=== PATIENT | female | born 1955 | race Caucasian/White ===

== ENCOUNTER 2017-03-19 15:09 | Inpatient (IN) ==
--- NOTE | 2017-03-18 21:32 | Discharge Summary ---
<Radha Montoya Cora - Last Filed: 03/18/17 21:28> Date of Encounter: 03/18/17 - Discharge Diagnosis (1) Arthritis of left hip Priority: Primary Status: Acute (2) Status post total hip replacement, left Priority: Primary Status: Acute (3) Tobacco use Priority: Secondary Status: Chronic (4) PVD (peripheral vascular disease) Priority: Secondary Status: Chronic - Discharge Medications Home Medications: Aspirin Enteric Coated [Aspirin EC] 325 mg PO DAILY #21 tablet.dr 03/18/17 [Rx] OxyCODONE Immed Rel [Roxicodone 5 MG] 5 mg PO Q6HR PRN #28 tablet 03/18/17 [Rx] Atorvastatin [Lipitor] 40 mg PO HS 03/19/17 [History] Buspirone HCl [Buspar] 15 mg PO DAILY 03/19/17 [History] Meloxicam [Mobic] 15 mg PO DAILY 03/19/17 [History] Sertraline [Zoloft] 50 mg PO DAILY 03/19/17 [History] Allergies/Adverse Reactions: 3 Allergy/AdvReac Type Severity Reaction Status Date / Time Penicillins Allergy Unknown See Verified 03/20/17 02:25 Comments Primary care physician: Higinio Vickers, - Patient Status Disposition: Home Health Service Condition: Good - Discharge Instructions Follow Up With: Higinio Vickers DO [Primary Care Provider] - - Hospital Course Hospital course: Ms. Reyes is a 62 year old female - Time Spent with Patient Total time spent providing and/or coordinating discharge services: <Kelvin Hancock - Last Filed: 03/21/17 07:49> Date of Encounter: 03/21/17 Time of Encounter: 07:49 - Discharge Diagnosis (1) Arthritis of left hip Priority: Primary Status: Chronic (2) Status post total hip replacement, left Priority: Primary Status: Acute (3) Tobacco use Priority: Secondary Status: Chronic (4) PVD (peripheral vascular disease) Priority: Secondary Status: Chronic Primary care physician: Higinio Vickers, - Patient Status Functional capacity at discharge: uses cane/walker Overall status at discharge: patient is progressing back to baseline - Hospital Course Hospital course: Ms. Reyes is a 62 year old female post left total hip replacement The patient had an uneventful postoperative course. They received antibiotics and physical therapy and were discharged in stable condition. There will follow -up in the office in 2 weeks. - Time Spent with Patient Total time spent providing and/or coordinating discharge services:
--- NOTE | 2017-03-18 21:35 | Physician Discharge Referral ---
<Radha Montoya Cora - Last Filed: 03/18/17 21:33> Home Health/Hosp Referral Info Transfer to: Home Health Attending Provider: Provider in Charge Post Discharge: PCP - Diagnosis (1) Arthritis of left hip Priority: Primary Status: Acute (2) Status post total hip replacement, left Priority: Primary Status: Acute (3) Tobacco use Priority: Secondary Status: Chronic (4) PVD (peripheral vascular disease) Priority: Secondary Status: Chronic - Respiratory Orders None Smoking Cessation: Smoking cessation has been advised. For more information, call the [place] Tobacco Quit Line at 8-771-BCME-NOW. - Diet/Nutrition Diet/Nutrition Orders: Regular - Activity Activity Orders: Up ad joselin, Ambulate, Chair, Walker - Services Needed Following services are medically necessary services: Nursing, Home Health Aide, Physical Therapy, Occupational Therapy Home Care Orders: Opsite dressing, leave intact until first post-operative visit. If dressing becomes >50% saturated, contact office, remove dressing and place appropriate dressing in its place. Do not allow for dressing to get wet. Zipline in place, plan to remove at post-operative day #14-16. Total Joint Precautions x 6 weeks Apply cold therapy wrap 3-6x/day for 20 minutes at a time. Encourage ambulation throughout the day Use Incentive spirometer 10x/hour. Elevate affected extremity above heart as tolerated. Brace: Wear hip abduction brace at night x 6 weeks. - Transfer Medications Home Medications: Aspirin Enteric Coated [Aspirin EC] 325 mg PO DAILY #21 tablet. 03/18/17 [Rx] OxyCODONE Immed Rel [Roxicodone 5 MG] 5 mg PO Q6HR PRN #28 tablet 03/18/17 [Rx] Atorvastatin [Lipitor] 40 mg PO HS 03/19/17 [History] Buspirone HCl [Buspar] 15 mg PO DAILY 03/19/17 [History] Meloxicam [Mobic] 15 mg PO DAILY 03/19/17 [History] Sertraline [Zoloft] 50 mg PO DAILY 03/19/17 [History] Allergies/Adverse Reactions: 3 Allergy/AdvReac Type Severity Reaction Status Date / Time Penicillins Allergy Unknown See Verified 03/20/17 02:25 Comments Certification: Further, I certify that my clinical findings support that this patient is homebound (i.e. absences from home require considerable and taxing effort and are for medical reasons or jainism services or infrequently or short duration when for other reasons) because: Homebound Reason: Absences from home are contraindicated except to recieve medical care Attestation: My signature below is to certify that this patient is under my care and that I, or nurse practitioner, or a physician's assistant softball coach working with me, has a face-to -face encounter with this patient. <Kelvin Hancock - Last Filed: 03/21/17 07:48> - Diagnosis (1) Arthritis of left hip Status: Chronic (2) Status post total hip replacement, left Status: Acute (3) Tobacco use Status: Chronic (4) PVD (peripheral vascular disease) Status: Chronic - Respiratory Orders Smoking Cessation: Smoking cessation has been advised. For more information, call the [place] Tobacco Quit Line at 0-697-VCQL-NOW. Certification: Further, I certify that my clinical findings support that this patient is homebound (i.e. absences from home require considerable and taxing effort and are for medical reasons or jainism services or infrequently or short duration when for other reasons) because: Attestation: My signature below is to certify that this patient is under my care and that I, or nurse practitioner, or a physician's assistant softball coach working with me, has a face-to -face encounter with this patient.
--- NOTE | 2017-03-19 15:43 | History & Physical Report ---
Date of Encounter: 03/19/17 Time of Encounter: 15:42 24 Hour HP Update - Instructions Instructions: If the History and Physical is less than 30 days old and was completed prior to A.M. admission and or procedure and has NOT been updated on calendar day of procedure please complete this update prior to performing procedure. - Update Patient reports changes in Medical Condition: No Changes in examination, assessment, or condition: No Changes in Medication: No Preop tests/diagnostics Reviewed: Yes Surgery Remains Indicated: Yes Consent for Planned Operative Procedure(s) Verified: Yes - Pre-Operative Checklist Preoperative Checklist Indicated: No Prophylactic Antibiotic Ordered: Yes Is VTE Prophylaxis Indicated?: Yes
[2017-03-19] MEDS ORDERED: Clindamycin 900 MG/50 ML 900 MG/50 ML IV.SOLN IVPB ONE (15:50)
[2017-03-19] MEDS ORDERED: Albuterol 2.5 MG/3 ML NEBULIZER IH ONE (15:53)
--- NOTE | 2017-03-19 15:56 | Anesthesia Evaluation PreOp ---
Date of Encounter: 03/19/17 Time of Encounter: 15:54 - Past History Planned Operation: Left total hip arthroplasty Cardiac History: Hyperlipidemia, Other (AAA s/p repair) Pulmonary History: Smoker INDUSTRIAL TECHNICIAN History: Other (anxiety) Other Medical History: GERD (resolved after cholecystectomy) Anesthesia History: No Prior Anesthetic Complications Alcohol Use: none Drug use: none Medications and Allergies Aspirin Enteric Coated [Aspirin EC] 325 mg PO DAILY #21 tablet. 03/18/17 [Rx] OxyCODONE Immed Rel [Roxicodone 5 MG] 5 mg PO Q6HR PRN #28 tablet 03/18/17 [Rx] 3 Allergy/AdvReac Type Severity Reaction Status Date / Time Penicillins Allergy See Unverified 03/14/17 11:28 Comments - Meds/Allergy Pre-op Review Medications Reviewed: Yes Allergies Reviewed: Yes Beta Blockers on Current Med List: No Anesthesia Results - Labs Laboratory Tests 03/14/17 03/14/17 03/14/17 11:40 11:40 11:40 WBC 4.3 Hgb 14.2 Hct 43.4 Plt Count 252 PT 10.9 INR 1.0 APTT 29.5 Sodium 140 Potassium 4.3 Chloride 104 Carbon Dioxide 27 BUN 17 Creatinine 0.81 Est GFR ( Amer) > 60 Est GFR (Non-Af Amer) > 60 BUN/Creatinine Ratio 21 Anesthesia Exam Last Vital Signs Temp 98.2 F 03/19/17 15:46 Pulse 90 03/19/17 15:46 Resp 16 03/19/17 15:46 BP 138/72 03/19/17 15:46 Pulse Ox 96 03/19/17 15:46 Weight: 79 kg - HEENT Pupil (Motor): Pupils equal, EOMI Mallampati: II Teeth: Poor dentition Oral Opening: Greater than 3 - INDUSTRIAL TECHNICIAN LOC: Oriented INDUSTRIAL TECHNICIAN Motor: Normal RUE, Normal LUE, Normal RLE, Normal LLE, Normal Face - Cardiac Rhythm: Regular Murmur: None - Pulmonary Breath Sounds: bilateral Clear Respiratory Effort: Symmetrical Anesthesia Assess/Plan ASA Score: 3 Modified Jane Scale for Level of Consciousness: Cooperative, oriented, and tranquil Anesthetic Plan: General Monitoring Plan: Standard Monitors Recovery Plan: PACU
[2017-03-19] MEDS ORDERED: Ringers Solution, Lactated 1,000 ML IVC SCH ×2 (16:00→20:00)
[2017-03-19] MEDS ORDERED: Ethanol\\Acetic Acid\\Na Ace\\Ben 1,000 ML IRRIG.SOLN IR ONE (16:31)
[2017-03-19] MEDS ORDERED: *HR* Propofol 200 MG/20 ML VIAL IVP ONE (16:38)
[2017-03-19] MEDS ORDERED: *HR* Midazolam HCl 2 MG/2 ML VIAL ONE (16:38)
[2017-03-19] MEDS ORDERED: *HR* FentaNYL (PF) 100 MCG/2 ML VIAL ONE (16:38)
[2017-03-19] MEDS ORDERED: Ondansetron 4 MG/2 ML VIAL IVP PRN ×2 (16:56→20:00)
[2017-03-19] MEDS ORDERED: Ondansetron 4 MG/2 ML VIAL ONE (17:03)
[2017-03-19] MEDS ORDERED: Dexamethasone 4 MG/ML VIAL ONE (17:03)
[2017-03-19] MEDS ORDERED: *HR* Succinylcholine 200 MG/10 ML VIAL IVP ONE (17:03)
[2017-03-19] MEDS ORDERED: *HR* HYDROmorphone 2 MG/ML SYRINGE ONE (17:11)
--- NOTE | 2017-03-19 17:25 | Orthopedic Operative Note ---
Date of procedure: 03/19/17 Pre-op diagnosis: Left hip arthritis Post-op diagnosis: same Procedure: Procedure: Total Hip Replacment left Estimated blood loss: 200 cc Hardware: Metal and polyethylene replacement. Biomet DM Cup: 52 G7 fin cup Femoral size 13echo full profile lateralized stem Head: 0head with Azul Procedural Notes: Grade 4 arthritis acetabulum and femoral head Operative procedure: The patient was brought to the operating room and placed on the operating room table. After general anesthesia was administered the patient was placed in the lateral decubitus position with the operative leg up. All pressure points were padded appropriately and the head was stabilized in the neutral position. The operative extremity was prepped and draped in the sterile surgical fashion patient received IV antibiotic prior to skin incision. A standard posterior approach is made to the operative hip, the incision was made through the skin and subcutaneous tissue hemostasis was obtained with Bovie cautery. Using careful sharp dissection the fascia was identified and incised exposing the external rotators. The external rotators were released off the greater trochanter and tagged with #2 FiberWire suture. The capsule was T'd open and the hip was brought into internal rotation. Patient noted to have grade 4 arthritic changes femoral head. The femoral neck cut was made at the appropriate level. An anterior capsulotomy was performed for the anterior retractor. Soft tissues removed from the acetabulum. Patient noted to have grade 4 arthritic changes acetabulum. Acetabulum was first reamed medially, and then reamed in 15 degrees of anteversion and 45 degrees off the horizontal. It was reamed up to the appropriate size 52. The appropriate-sized 52 acetabular cup was impacted in place in 15 degrees of anteversion and 45 degrees off the horizontal. This had good fit and fixation. The hip was brought back in to internal rotation and prepared with the safe deposit box rental clerk followed by the canal finder followed by broaching process in 20 degrees anteversion. It was broached up to the appropriate size 13. The femoral implant was impacted in place in 20 degrees of anteversion. Trial reduction found the hip to be stable with 0 head and Azul. The trials were removed and the real implants were impacted in place. The hip was reduced, patient had apparent equal leg lengths. The hip had excellent stability with forward flexion to 90 degrees adduction of 30 degrees and internal rotation of 60 degrees. The hip had no shuck. The hips after 2 minutes with a Betadine saline solution. It was irrigated out with 2 L of pulse irrigation. The hip was closed by the PA. Fascia was closed with a running #2 PDS suture. The deep tissue was irrigated and closed deep with #1 PDS suture superficially with 0 PDS suture and skin was closed with Dermabond and skin mathew. The patient was placed in a sterile dressing and abduction pillow. The patient was extubated and transferred to the recovery room in stable condition. Anesthesia: GETA Surgeon: Kelvin Hancock Condition: stable Disposition: PACU
[2017-03-19] MEDS ORDERED: *HR* Enoxaparin 30 MG/0.3 ML SYRINGE SQ SCH (18:00)
[2017-03-19] MEDS: *HR* HYDROmorphone (PF) 1 MG/ML SYRINGE IVP PRN ×4 (18:09→18:40)
[2017-03-19] MEDS ORDERED: Acetaminophen IV 1,000 MG/100 ML INFUS..BTL IVPB ONE (18:32)
[2017-03-19] MEDS ORDERED: Ketorolac 30 MG/ML VIAL IVP ONE (18:32)
[2017-03-19] MEDS ORDERED: Acetaminophen IV 1,000 MG/100 ML INFUS..BTL ONE (18:33)
[2017-03-19 18:35] LABS: Hematocrit 40.2 % (35.3-44.9); Hemoglobin 12.9 g/dL (11.5-15.4)
--- NOTE | 2017-03-19 18:57 | Anesthesia Evaluation Post Op ---
Date of Encounter: 03/19/17 Time of Encounter: 18:56 - Vital Signs Vital Signs: Last Vital Signs Temp 98 F 03/19/17 18:30 Pulse 80 03/19/17 18:50 Resp 12 03/19/17 18:50 BP 140/60 03/19/17 18:50 Pulse Ox 97 03/19/17 18:50 - Lungs Lungs: Clear Ascult./Percussion - Airway Airway: Non-obstructed - Cardiovascular Regular Rate - Mental Status Mental Status: Alert & Oriented, Answers Appropriately - Pain Pain Scale: 4 - Nausea Vomiting Nausea Vomiting: Not Present - Hydration Hydration: Ice chips - Discharge PostOp Status: Transfer Patient to floor
[2017-03-19] MEDS ORDERED: *HR* OxyCODONE Immed Rel 5 MG TABLET PO PRN (20:00)
[2017-03-19] MEDS ORDERED: Temazepam 15 MG CAPSULE PO PRN (20:00)
[2017-03-19] MEDS ORDERED: MOM Conc 10 ML UD.LIQ PO PRN (20:00)
[2017-03-19] MEDS ORDERED: Naloxone 0.4 MG/ML INJ IVP PRN (20:00)
[2017-03-19] MEDS ORDERED: *HR* HYDROmorphone (PF) 1 MG/ML SYRINGE IVP PRN (20:00)
[2017-03-19] MEDS ORDERED: Sennosides 8.6 MG TABLET PO PRN (20:00)
[2017-03-19] MEDS: CeFAZolin Premix DUPLEX 2,000 MG/50 ML BAG IVPB SCH (22:29)
[2017-03-19] MEDS: Ascorbic Acid 500 MG TABLET PO SCH (22:30)
[2017-03-20] MEDS: *HR* OxyCODONE Immed Rel 5 MG TABLET PO PRN ×4 (00:54→21:28)
[2017-03-20] MEDS: CeFAZolin Premix DUPLEX 2,000 MG/50 ML BAG IVPB SCH (03:52)
[2017-03-20] MEDS: *HR* Enoxaparin 30 MG/0.3 ML SYRINGE SQ SCH ×2 (05:14→17:15)
[2017-03-20 06:25] LABS: Hematocrit 34.7 % (35.3-44.9); Hemoglobin 11.4 g/dL (11.5-15.4)
[2017-03-20 06:44] LABS: BUN/Creatinine Ratio 19 (6-26); Blood Urea Nitrogen 17 mg/dL (7-20); Carbon Dioxide 26 mEq/L (19-29); Chloride 102 mEq/L (98-109); Glucose 153 mg/dL (70-99); Osmolality,Calculated 291 (280-300); Potassium 3.8 mEq/L (3.5-4.5); Sodium 138 mEq/L (136-145); eGFR For African Americans > 60 (> 60); eGFR For Non-African Americans > 60 (> 60)
--- NOTE | 2017-03-20 06:49 | Orthopedics Progress Note ---
Date of Encounter: 03/20/17 Time of Encounter: 06:49 - Assessment and Plan (1) Arthritis of left hip Current Visit: No Status: Chronic (2) Status post total hip replacement, left Current Visit: No Status: Acute (3) Tobacco use Current Visit: No Status: Chronic (4) PVD (peripheral vascular disease) Current Visit: No Status: Chronic Subjective Interval history: Patient was seen this morning doing well without complaints. Afebrile vital signs stable. Operative extremity: Neurovascularly intact Dressing clean dry and intact Calves nontender Assessment and plan: Continue with postoperative care Hematocrit 34 Objective Vital signs: Vital Signs Temp Pulse Resp BP Pulse Ox 03/20/17 03:49 97.6 F 75 18 128/65 93 03/20/17 01:19 99.0 F 70 17 124/76 99 03/19/17 22:30 98.0 F 70 14 114/66 03/19/17 21:30 97.9 F 71 16 117/60 03/19/17 20:30 97.3 F L 75 14 121/61 03/19/17 20:00 98.0 F 75 15 109/54 03/19/17 19:30 98.2 F 82 14 121/61 03/19/17 19:00 97.9 F 79 12 116/60 97 03/19/17 18:50 80 12 140/60 97 03/19/17 18:40 86 12 135/75 98 03/19/17 18:30 98 F 80 12 145/67 97 03/19/17 18:20 78 12 136/63 97 03/19/17 18:10 77 12 132/59 100 03/19/17 18:00 97.6 F 69 12 127/53 100 03/19/17 15:46 98.2 F 90 16 138/72 96 Intake and Output 03/19/17 03/19/17 03/20/17 15:59 23:59 07:59 Intake Total 300 / 300 500 / 500 Output Total 200 / 200 Balance 100 / 100 500 / 500 Intake: IV Fluids 50 / 50 Ancef Premix DUPLEX 2,000 mg In 50 / 50 50 ml @ 100 mls/hr IVPB Q8H SANAM Rx#:[id number] Oral 250 / 250 500 / 500 Output: Estimated Blood Loss 200 / 200 Other: # Voids 1 Weight 79.492 kg - Labs CBC & BMP: 03/20/17 05:01 03/20/17 05:01 Labs: Abnormal lab results Hgb 11.4 g/dL (11.5-15.4) L D 03/20/17 05:01 Hct 34.7 % (35.3-44.9) L 03/20/17 05:01 Glucose 153 mg/dL (70-99) H 03/20/17 05:01 - VTE Documentation of Mechanical Device: Venous foot pump, device Consult Discharge Plan - Plan Referrals: Higinio Vickers DO [Primary Care Provider] -
[2017-03-20] MEDS: Ascorbic Acid 500 MG TABLET PO SCH ×2 (09:12→17:15)
[2017-03-20] MEDS: Multivit/Ca/Min/Fe/FA 1 TAB TABLET PO SCH (09:13)
--- NOTE | 2017-03-20 16:23 | Event Note ---
Date of Encounter: 03/20/17 Time of Encounter: 16:22 POD#.1 Patient seen at bedside. Participating in PT. All questions and concerns addressed. Educated on use of incentive spirometer, ambulation, and hydration. D/C plan: D/C home 03/21 with Monica
[2017-03-21] MEDS: *HR* OxyCODONE Immed Rel 5 MG TABLET PO PRN (05:05)
[2017-03-21] MEDS: *HR* Enoxaparin 30 MG/0.3 ML SYRINGE SQ SCH (05:05)
[2017-03-21 05:21] LABS: Hematocrit 35.9 % (35.3-44.9); Hemoglobin 11.6 g/dL (11.5-15.4)
[2017-03-21 05:41] LABS: BUN/Creatinine Ratio 15 (6-26); Blood Urea Nitrogen 12 mg/dL (7-20); Calcium 9.5 mg/dL (8.6-10.8); Carbon Dioxide 25 mEq/L (19-29); Chloride 100 mEq/L (98-109); Glucose 135 mg/dL (70-99); Osmolality,Calculated 286 (280-300); Potassium 3.5 mEq/L (3.5-4.5); Sodium 137 mEq/L (136-145); eGFR For African Americans > 60 (> 60); eGFR For Non-African Americans > 60 (> 60)
[2017-03-21] MEDS: Ketorolac 30 MG/ML VIAL IVP SCH ×2 (07:02→13:08)
--- NOTE | 2017-03-21 07:50 | Orthopedics Progress Note ---
Date of Encounter: 03/21/17 Time of Encounter: 07:50 - Assessment and Plan (1) Arthritis of left hip Current Visit: No Status: Chronic (2) Status post total hip replacement, left Current Visit: No Status: Acute (3) Tobacco use Current Visit: No Status: Chronic (4) PVD (peripheral vascular disease) Current Visit: No Status: Chronic Subjective Interval history: Patient was seen this morning doing well without complaints. Afebrile vital signs stable. Operative extremity: Neurovascularly intact Dressing clean dry and intact Calves nontender Assessment and plan: Continue with postoperative care Hematocrit 35 discharged today Objective Vital signs: Vital Signs Temp Pulse Resp BP Pulse Ox 03/21/17 07:29 79 16 113/63 91 03/21/17 04:58 98.4 F 78 16 129/64 96 03/20/17 23:21 98.1 F 85 17 87/53 95 03/20/17 22:13 98.0 F 79 17 129/75 94 03/20/17 16:44 98.4 F 75 14 118/53 95 03/20/17 11:20 98.8 F 73 15 117/69 95 Intake and Output 03/20/17 03/20/17 03/21/17 15:59 23:59 07:59 Intake Total 860 / 860 1150 / 1150 Output Total 350 / 350 885 / 885 Balance 510 / 510 265 / 265 Intake: Oral 860 / 860 1150 / 1150 Output: Urine 350 / 350 885 / 885 Other: # Voids 1 1 1 Weight 142 kg Patient Weight 03/21/17 23:59 Weight 142 kg - Labs CBC & BMP: 03/21/17 04:52 03/21/17 04:52 Labs: Abnormal lab results Glucose 135 mg/dL (70-99) H 03/21/17 04:52 - VTE Documentation of Mechanical Device: Venous foot pump, device Consult Discharge Plan - Plan Referrals: Higinio Vickers DO [Primary Care Provider] -
[2017-03-21] MEDS: Ascorbic Acid 500 MG TABLET PO SCH (09:32)
[2017-03-21] MEDS: Multivit/Ca/Min/Fe/FA 1 TAB TABLET PO SCH (09:32)
[2017-03-21 10:35] VITALS: BP 100/61
[2017-03-21] MEDS ORDERED: FLUARIX QUAD 2017-18 36MOS UP/PF 0.5 ML SYRINGE IM ONE (12:59)
== END 2017-03-21 14:00 | disposition home health service (06) | DRG 470 ==
LOC: SAMDAY 15:09 → 3NENU 19:50
PROVIDERS: ADMIT Orthopaedic Surgery; ATTEND Orthopaedic Surgery